=== PATIENT | male | born 1980 | race Two or more races ===

== ENCOUNTER 2016-12-12 18:20 | Emergency (ER) | payer SELFPAY ==
[2016-12-12] MEDS ORDERED: MAALOX/LIDO2%VISC/SIMETHICONE 40 ML BOT ONE (20:57)
== END 2016-12-12 22:06 | disposition home or self-care (01) ==
LOC: ED 18:20
DX: K21.0 Gastro-esophageal reflux disease with esophagitis (principal); F17.210 Nicotine dependence, cigarettes, uncomplicated
CPT/HCPCS: 99283 ×2; A9270